=== PATIENT | female | born 1935 | race Caucasian/White ===

== ENCOUNTER 2018-04-22 11:33 | Emergency (ER) | payer MEDICARE, OTHER ==
[2018-04-22] MEDS: HYDROCODONE/APAP (10/325) TAB PO (13:07)
== END 2018-04-22 15:00 | disposition home or self-care (01) ==
LOC: E/R 11:33
DX: S83.92XA Sprain of unspecified site of left knee, initial encounter (principal); S91.202A Unspecified open wound of left great toe with damage to nail, initial encounter; I10 Essential (primary) hypertension; W01.0XXA Fall on same level from slipping, tripping and stumbling without subsequent striking against object, initial encounter; Y92.9 Unspecified place or not applicable
CPT/HCPCS: 73562; 99283-25